=== PATIENT | female | born 1970 | race American Indian/Alaskan Native ===

== ENCOUNTER 2016-09-17 | Emergency (ER) | END 2016-09-17 14:57 | disposition home or self-care (01) ==

== ENCOUNTER 2016-10-01 11:15 | Emergency (ER) | payer MEDICAID ==
[2016-10-01] MEDS ORDERED: IBUPROFEN 600 MG TABLET PO STA (13:55)
[2016-10-01] MEDS ORDERED: SULFAMETH/TRIMETH DS 800/160 MG TABLET PO STA (13:55)
[2016-10-01] MEDS ORDERED: SULFAMETH/TRIMETH DS 800/160 MG TABLET PO ONE ×2 (14:05→14:06)
[2016-10-01] MEDS ORDERED: IBUPROFEN 600 MG TABLET PO ONE (14:05)
== END 2016-10-01 14:14 | disposition home or self-care (01) ==
DX: L02.31 Cutaneous abscess of buttock (principal); F17.200 Nicotine dependence, unspecified, uncomplicated
CPT/HCPCS: 87070; 87077; 87181; 87205; 99282; 99283; A9270

== ENCOUNTER 2016-11-24 20:51 | Emergency (ER) | payer MEDICAID ==
[2016-11-24] MEDS ORDERED: HYDROcod/ACET 5/325 Prepack 6 PO STA (21:16)
[2016-11-24] MEDS ORDERED: CYCLOBENZAPRINE 10 MG Prepack 2 PO STA (21:16)
[2016-11-24] MEDS ORDERED: HYDROcod/ACET 5/325 Prepack 6 PO ONE (21:19)
[2016-11-24] MEDS ORDERED: CYCLOBENZAPRINE 10 MG Prepack 2 PO ONE (21:19)
== END 2016-11-24 21:29 | disposition home or self-care (01) ==
DX: M54.41 Lumbago with sciatica, right side (principal); F17.200 Nicotine dependence, unspecified, uncomplicated

== ENCOUNTER 2017-01-21 08:03 | Day surgery (SDC) | payer MEDICAID ==
[2017-01-21] MEDS ORDERED: ceFAZolin 1 GM VIAL ONE (08:05)
[2017-01-21] MEDS ORDERED: LACTATED RINGERS 1,000 ML IV ONE (08:27)
[2017-01-21 08:41] LABS: HCG UR QUAL NEGATIVE
[2017-01-21] MEDS ORDERED: BUPIVACAINE 0.25% PF 30 ML VIAL SUBQ ONE ×2 (10:37)
[2017-01-21] MEDS ORDERED: PROPOFOL 200 MG/20 ML VIAL IVP ONE (11:00)
[2017-01-21] MEDS ORDERED: ONDANSETRON 4 MG/2 ML VIAL IVP ONE (11:00)
[2017-01-21] MEDS ORDERED: MIDAZOLAM 2 MG/2 ML VIAL IVP ONE (11:00)
[2017-01-21] MEDS ORDERED: fentaNYL 100 MCG/2 ML VIAL IVP ONE (11:00)
[2017-01-21] MEDS ORDERED: LIDOCAINE-MPF 2% 5 ML VIAL IM ONE (11:00)
[2017-01-21] MEDS ORDERED: GLYCOPYRROLATE 1 MG/5 ML VIAL IVP ONE (11:00)
[2017-01-21] MEDS ORDERED: KETAMINE 500 MG/10 ML VIAL IVP ONE (11:00)
[2017-01-21] MEDS ORDERED: DEXAMETHASONE 4 MG/ML VIAL IVP ONE (11:00)
[2017-01-21 12:07] VITALS: BP 101/75
--- NOTE | 2017-02-13 12:01 | OPERATIVE REPORT ---
DATE OF SURGERY: 01/21/2017 00:00:00 PREOPERATIVE DIAGNOSIS: Right middle finger trigger. POSTOPERATIVE DIAGNOSIS: Right middle finger trigger. PROCEDURE: Release of a right middle finger trigger (A1 ja). SURGEON: Jonathan Bush MD. ASSISTANTS: None. SPONGE AND NEEDLE COUNTS: Correct. MATERIAL TO LAB: None. ANESTHESIA: Monitored anesthesia care, plus local anesthetic. FINDINGS: Same. COMPLICATIONS: None. TOURNIQUET: Esmarch to the right arm x11 minutes without complications. BLOOD LOSS: None. SPECIMEN REMOVED AND CULTURES: None. CONDITION AT END OF PROCEDURE: Good. DISPOSITION: PACU, then home. INDICATIONS: This is a 46-year-old female with history of triggering in her right middle finger that had been refractive to conservative management including exercises. She had declined injection becaus e of the anticipated pain. She elected instead for surgical release. PROCEDURE IN DETAIL: After consent and identification, the patient was brought to the operating room on the operating litter in a supine position. After induction of MAC anesthesia, the right upper extr emity was prepped and draped free in the usual sterile fashion for hand surgery. After an appropriate timeout was conducted, we exsanguinated the hand and forearm up to the elbow wit h an Esmarch bandage, which was unwrapped at the wrist and left tied around the proximal forearm and elbow. With the forearm in a supinated position, we extended the digits. We mapped out a short obliqu e 1.5 cm incision directly over the right middle finger metacarpal head. The oblique incision was car ried from radial proximal to ulnar distal down through the skin and subcutaneous fat. Ragnell retract ors were used to retract the fat to allow exposure of the A1 ja. The A1 ja was divided with s weeping motions with a #15 blade scalpel, taking care not to damage the underlying tendon. Ranging the finger through flexion and extension several times revealed a small nodule, which was no longer triggering. We irrigated the wound and closed with a running interlocked 4-0 nylon suture. We injected the wound with 3 mL of 0.5% Marcaine without epinephrine. Xeroform gauze was applied, followed by 4 x 4's and a bulky hand dressing. On completion of the proce dure, the Esmarch was removed without complication. Capillary refill was noted to be less than 2 seco nds. The patient was then extubated and transferred to the recovery room in good condition having james erated the procedure well. JOB #: [id number] EXT JOB #:[id number]
== END 2017-01-21 08:04 | disposition home or self-care (01) ==
LOC: SDS 08:03
PROVIDERS: ATTEND Orthopaedic Surgery
PROC: 0LN70ZZ Release Right Hand Tendon, Open Approach (ICD-10-PCS; principal; 2017-01-21 09:00)
DX: M65.331 Trigger finger, right middle finger (principal); F17.210 Nicotine dependence, cigarettes, uncomplicated; Z90.49 Acquired absence of other specified parts of digestive tract
CPT/HCPCS: 26055; 81025; J7120; 88304

== ENCOUNTER 2017-05-10 19:36 | Emergency (ER) | payer MEDICAID ==
[2017-05-10 19:49] VITALS: BP 113/83
--- NOTE | 2017-05-10 21:21 | XRAY Preliminary Report ---
Exam: XR Elbow 3 View RT IMPRESSION: 1. No acute bony abnormality. 2. Dorsal olecranon edema. Correlate Clinically to differentiate between cellulitis, hematoma, bursit is or mass lesion. [facility] SITE ID: [id number]
--- NOTE | 2017-05-10 21:30 | XRAY Report ---
EXAM: RIGHT ELBOW RADIOGRAPHY EXAM DATE: 05/10/2017 08:56 PM. CLINICAL HISTORY: Pain since a fall onto the right elbow 1.5 weeks ago. COMPARISON: None. TECHNIQUE: 3 views. FINDINGS: Bones: Normal. No fractures or bone lesions. Joints: Normal. No effusion. No subluxation. Soft Tissues: Moderate focal edema dorsal to the olecranon. IMPRESSION: 1. No acute bony abnormality. 2. Dorsal olecranon edema. Correlate clinically to differentiate between cellulitis, hematoma, bursit is or mass lesion. [facility] Referring Provider Line: [phone] SITE ID: [id number]
--- NOTE | 2017-05-10 21:42 | ED Physician Documentation ---
PD HPI UPPER EXT INJURY - Stated complaint Stated Complaint: GLF - RT ARM PX - Chief complaint Chief Complaint: Trauma Ext - History obtained from History obtained from: Patient - History of Present Illness Location: Other (About a week ago she fell directly on her Right elbow and has swelling there that is persistent bothering her.) Review of Systems Constitutional: denies: Fever, Chills GI: denies: Abdominal Pain, Nausea, Vomiting PD PAST MEDICAL HISTORY - Past Medical History Past Medical History: Yes Cardiovascular: None Respiratory: None Neuro: None Endocrine/Autoimmune: None GI: None : None HEENT: None Psych: None Musculoskeletal: Chronic back pain Derm: None - Past Surgical History Past Surgical History: Yes General: Cholecystectomy - Present Medications Home Medications: Ambulatory Orders Medication Instructions Recorded Confirmed [place]-3 Fatty Acids [Fish Oil] 300 mg PO DAILY 01/21/17 05/10/17 - Allergies Allergies/Adverse Reactions: Allergies Allergy/AdvReac Type Severity Reaction Status Date / Time No Known Drug Allergies Allergy Verified 05/10/17 19:50 - Social History Does the pt smoke?: Yes Smoking Status: Current every day smoker Does the pt drink ETOH?: No Does the pt have substance abuse?: No - Immunizations Immunizations are current?: Yes - POLST Patient has POLST: No PD ED PE NORMAL - Vitals Vital signs reviewed: Yes - General General: Alert and oriented X 3, No acute distress - Extremities Extremities: Other (She has a boggy olecranon bursa without warmth or redness or limited range of motion.) - Neuro Neuro: Alert and oriented X 3, Normal speech - Psych Psych: Normal mood, Normal affect Results - Vitals Vitals: Vital Signs - 24 hr 05/10/17 19:47 Temperature 36.0 C L Heart Rate 85 Respiratory 16 Rate Blood Pressure 113/83 H O2 Saturation 100 Oxygen O2 Source Room air PD MEDICAL DECISION MAKING - ED course ED course: 47-year-old woman with traumatic injury to left elbow with negative x-rays, it seems that she has some hemorrhage into her olecranon bursa, given that there is no evidence of infection at this juncture, conservative care and wrapping was advised. Departure - Departure Disposition: 01 Home, Self Care Clinical Impression: Effusion of right olecranon bursa Condition: Good Record reviewed to determine appropriate education?: Yes Follow-Up: [facility] [Provider Group] Comments: Return if worse, otherwise if this does not resolve with wrapping and time you can follow-up with the orthopedics office.
== END 2017-05-10 21:59 | disposition home or self-care (01) ==
LOC: ED 19:36
DX: M25.421 Effusion, right elbow (principal); S59.901A Unspecified injury of right elbow, initial encounter; W19.XXXA Unspecified fall, initial encounter; F17.200 Nicotine dependence, unspecified, uncomplicated
CPT/HCPCS: 99282; 99283

== ENCOUNTER 2017-09-12 17:00 | Emergency (ER) | payer MEDICAID ==
[2017-09-12 17:10] VITALS: BP 130/93
--- NOTE | 2017-09-12 17:33 | ED Physician Documentation ---
History of Present Illness - Stated complaint Stated Complaint: FEMALE - Chief complaint Chief Complaint: General - History obtained from History obtained from: Patient - History of Present Illness Timing: Other (A few days of vaginal itching and irritation without significant discharge. 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 - Present Medications Home Medications: Ambulatory Orders Medication Instructions Recorded Confirmed Metronidazole [Flagyl] 500 mg PO BID #14 tablet 09/12/17 - Allergies Allergies/Adverse Reactions: Allergies Allergy/AdvReac Type Severity Reaction Status Date / Time No Known Drug Allergies Allergy Verified 09/12/17 17:10 - Social History Does the pt smoke?: Yes Smoking Status: Current every day smoker Does the pt drink ETOH?: No Does the pt have substance abuse?: No - Immunizations Immunizations are current?: Yes - POLST Patient has POLST: No PD ED PE NORMAL - Vitals Vital signs reviewed: Yes - General General: Alert and oriented X 3, No acute distress - Abdomen Abdomen: Soft, Non tender - Female Female : 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 No bimanual or cervical motion tenderness. Swabs done but no overt discharge.) - Neuro Neuro: Alert and oriented X 3, Normal speech Results - Vitals Vitals: Vital Signs - 24 hr 09/12/17 17:07 Temperature 36.5 C Heart Rate 85 Respiratory 18 Rate Blood Pressure 130/93 H O2 Saturation 98 Oxygen O2 Source Room air - Labs Labs: Microbiology 09/12/17 17:31 Wet Prep - Final Vaginal 09/12/17 17:31 FIONA Preparation - Final Fluid - Vaginal Laboratory Tests 09/12/17 09/12/17 17:25 17:25 Urine Color YELLOW Urine Clarity CLEAR Urine pH 6.5 Ur Specific [place] <=1.005 <=1.005 Urine Protein NEGATIVE Urine Glucose (UA) NEGATIVE Urine Ketones NEGATIVE Urine Occult Blood NEGATIVE Urine Nitrite NEGATIVE Urine Bilirubin NEGATIVE Urine Urobilinogen 0.2 (NORMAL) Ur Leukocyte Esterase NEGATIVE Ur Microscopic Review NOT INDICATED Urine Culture Comments NOT INDICATED Urine HCG, Qual NEGATIVE Departure - Departure Disposition: 01 Home, Self Care Clinical Impression: Vaginal rosa maria, Bacterial vaginitis Condition: Good Record reviewed to determine appropriate education?: Yes Instructions: Vaginal Infec Bacterial Vaginosis Prescriptions: Metronidazole [Flagyl] 500 mg PO BID #14 tablet Comments: Recheck with your family doctor in 1 week. Return if worse. Your blood pressure was elevated today on check into the emergency department. This does not mean that you have hypertension, it is a common phenomenon to come to the emergency department and have elevated blood pressure. I recommend that you see your primary care physician within the week to have it rechecked when you are feeling better.
[2017-09-12 17:51] LABS: BILIRUBIN,URINE NEGATIVE (NEGATIVE); GLUCOSE, URINE (UA) NEGATIVE (NEGATIVE); KETONES,URINE (UA) NEGATIVE (NEGATIVE); LEUKOCYTE ESTERASE, URINE NEGATIVE (NEGATIVE); NITRITE,URINE NEGATIVE (NEGATIVE); OCCULT BLOOD,URINE NEGATIVE (NEGATIVE); PH,URINE 6.5 PH (5.0-7.5); PROTEIN,URINE NEGATIVE (NEGATIVE); UROBILINOGEN,URINE 0.2 (NORMAL) E.U./dL (NORMAL)
[2017-09-12 17:54] LABS: CLARITY,URINE CLEAR (CLEAR)
[2017-09-12 17:55] LABS: HCG UR QUAL NEGATIVE
[2017-09-12] MEDS ORDERED: FLUCONAZOLE 100 MG TABLET PO STA (18:06)
[2017-09-12] MEDS ORDERED: metroNIDAZOLE 250 MG TABLET PO STA (18:06)
== END 2017-09-12 18:26 | disposition home or self-care (01) ==
LOC: ED 17:00
DX: B37.3 Candidiasis of vulva and vagina (principal); N76.0 Acute vaginitis; R03.0 Elevated blood-pressure reading, without diagnosis of hypertension; F17.200 Nicotine dependence, unspecified, uncomplicated
CPT/HCPCS: 81003; 81025; 87210; 87220; 87491; 87591; 99283; A9270; 81001; 87086

== ENCOUNTER 2018-02-12 22:12 | Emergency (ER) | payer MEDICAID ==
[2018-02-12 22:19] VITALS: BP 134/83
[2018-02-12] MEDS ORDERED: KETOROLAC 60 MG/2 ML VIAL IM STA (22:45)
[2018-02-12] MEDS ORDERED: CYCLOBENZAPRINE 10 MG TABLET PO STA (22:45)
[2018-02-12] MEDS ORDERED: DEXAMETHASONE 10 MG/ML VIAL PO STA (22:45)
--- NOTE | 2018-02-12 22:51 | ED Physician Documentation ---
PD HPI BACK PAIN - Stated complaint Stated Complaint: LOWER BACK PX - Chief complaint Chief Complaint: Back Pain - History obtained from History obtained from: Patient - History of Present Illness Timing - onset: Yesterday Timing - duration: Days (2) Timing - details: Gradual onset Pain level max: 7 Pain level now: 7 Location: Lower, Right, Left Quality: Pain, Spasm, Similar to prior episodes Associated symptoms: No: Fever, Weakness, Numbness, Incontinent of urine, Unable to urinate, Hematuria, Incontinent of stool Improves with: Rest Worsened by: Movement, Twisting, Palpation Contributing factors: No: Lifting, Twisting, Trauma, Anticoagulated, Cancer, IVDA, Out of meds Similar symptoms before: Diagnosis (chronic back pain) Recently seen: Not recently seen Review of Systems Constitutional: denies: Fever, Chills GI: denies: Vomiting, Diarrhea Neurologic: denies: Focal weakness, Numbness PD PAST MEDICAL HISTORY - Past Medical History Cardiovascular: None Respiratory: None Endocrine/Autoimmune: None GI: None : None HEENT: None Psych: None Musculoskeletal: Chronic back pain Derm: None - Past Surgical History Past Surgical History: Yes 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 - Present Medications Home Medications: Ambulatory Orders Medication Instructions Recorded Confirmed Metronidazole [Flagyl] 500 mg PO BID #14 tablet 09/12/17 Cyclobenzaprine [Flexeril] 10 mg PO TID PRN #20 tablet 02/12/18 Meloxicam [Mobic] 15 mg PO DAILY PRN #20 tablet 02/12/18 - Allergies Allergies/Adverse Reactions: Allergies Allergy/AdvReac Type Severity Reaction Status Date / Time No Known Drug Allergies Allergy Verified 09/12/17 17:10 - Social History Does the pt smoke?: Yes Smoking Status: Current every day smoker Does the pt drink ETOH?: No Does the pt have substance abuse?: No - Immunizations Immunizations are current?: Yes - POLST Patient has POLST: No PD ED PE NORMAL - Vitals Vital signs reviewed: Yes - General General: Alert and oriented X 3, No acute distress - HEENT HEENT: Moist mucous membranes - Neck Neck: Supple, no meningeal sign - Cardiac Cardiac: RRR - Respiratory Respiratory: No respiratory distress, Clear bilaterally - Abdomen Abdomen: Soft, Non tender, Non distended - Back Back: No spinal TTP, Other (No midline tenderness to palpation or percussion. Paraspinal spasm low lumbar bilaterally.) - Derm Derm: Warm and dry, No rash - Extremities Extremities: Normal ROM s pain, Other (normal bilateral lower extremity patellar and ankle jerk reflexes. Normal great toe extension bilaterally) - Neuro Neuro: Alert and oriented X 3, No motor deficit, No sensory deficit - Psych Psych: Normal mood, Normal affect Results - Vitals Vitals: Vital Signs - 24 hr 02/12/18 22:17 Temperature 36.0 C L Heart Rate 72 Respiratory 16 Rate Blood Pressure 134/83 H O2 Saturation 100 Oxygen O2 Source Room air PD MEDICAL DECISION MAKING - ED course Complexity details: re-evaluated patient, considered differential (no cauda equina, no spinal epidural abscess, no fracture, no aortic dissection or evidence of aneursym rupture), d/w patient ED course: Patient is a 48-year-old female with acute on chronic back pain. Feels better after Toradol, Flexeril and dexamethasone. Ambulating well. No neurological deficits. No evidence of fracture, cauda equina, epidural abscess. Will continue supportive care and follow-up with her doctor. Patient counseled regarding signs and symptoms for which I believe and urgent re-evaluation would be necessary. Patient with good understanding of and agreement to plan and is comfortable going home at this time This document was made in part using voice recognition software. While efforts are made to proofread this document, sound alike and grammatical errors may occur. Departure - Departure Disposition: 01 Home, Self Care Clinical Impression: Back pain Qualifiers: Back pain location: low back pain Chronicity: acute Back pain laterality: bilateral Sciatica presence: without sciatica Qualified Code(s): M54.5 - Low back pain Condition: Good Instructions: ED Low Back Pain Injury Follow-Up: Salazar Redd MD [Primary Care Provider] - Within 1 week Prescriptions: Cyclobenzaprine [Flexeril] 10 mg PO TID PRN #20 tablet PRN Reason: Spasms Meloxicam [Mobic] 15 mg PO DAILY PRN #20 tablet PRN Reason: pain Comments: Do not drive or operate heavy machinery while on the flexeril. This should improve over the next 2-3 days. Return if you worsen. Discharge Date/Time: 02/12/18 23:20
[2018-02-12] MEDS ORDERED: CHERRY SYRUP 10 ML UDC PO ONE (22:57)
== END 2018-02-12 23:20 | disposition home or self-care (01) ==
LOC: ED 22:12
DX: M54.5 Low back pain (principal); G89.29 Other chronic pain; F17.200 Nicotine dependence, unspecified, uncomplicated
CPT/HCPCS: 96372; 99283; A9270

== ENCOUNTER 2018-04-30 15:39 | Outpatient (CLI) | payer MEDICAID | END 2018-04-30 15:40 | disposition critical access hospital (66) | LOC: EMS 15:39 | PROVIDERS: ATTEND Surgery | DX: R06.02 Shortness of breath (principal); R42 Dizziness and giddiness; R11.2 Nausea with vomiting, unspecified | CPT/HCPCS: A0425; A0427; A0999 ==

== ENCOUNTER 2018-04-30 16:03 | Emergency (ER) | payer MEDICAID ==
--- NOTE | 2018-04-30 16:46 | ED Physician Documentation ---
PD HPI DYSPNEA - Stated complaint Stated Complaint: SOA - Chief complaint Chief Complaint: Neuro - History obtained from History obtained from: Patient - History of Present Illness Timing - onset: How many hours ago (2) Timing - details: Now resolved Similar symptoms before: Has not had sx before - Additional information Additional information: The patient is a 48-year-old female who arrives via ambulance after she developed sudden onset of nausea, vomiting, and shortness of breath about 2 hours prior to arrival while cleaning a room. She denies fever, cough, or shortness of breath. She denies history of similar symptoms in the past. Her symptoms have resolved spontaneously prior to arrival in the emergency department. She smokes cigarettes, and medics report that she was wearing a nicotine patch and smoking a cigarette when they first evaluated her Review of Systems Constitutional: denies: Fever Ears: denies: Tinnitus/ringing Nose: denies: Congestion Throat: denies: Sore throat Cardiac: denies: Chest pain / pressure Respiratory: reports: Dyspnea (Previously, not currently.). denies: Cough GI: reports: Nausea, Vomiting. 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 - Present Medications Home Medications: Ambulatory Orders Medication Instructions Recorded Confirmed Metronidazole [Flagyl] 500 mg PO BID #14 tablet 09/12/17 Cyclobenzaprine [Flexeril] 10 mg PO TID PRN #20 tablet 02/12/18 Meloxicam [Mobic] 15 mg PO DAILY PRN #20 tablet 02/12/18 - Allergies Allergies/Adverse Reactions: Allergies Allergy/AdvReac Type Severity Reaction Status Date / Time No Known Drug Allergies Allergy Verified 04/30/18 16:31 - Social History Does the pt smoke?: Yes Smoking Status: Current every day smoker Does the pt drink ETOH?: No Does the pt have substance abuse?: No - Immunizations Immunizations are current?: Yes - POLST Patient has POLST: No PD ED PE NORMAL - Vitals Vital signs reviewed: Yes (normal) - General General: Alert and oriented X 3, Well developed/nourished - HEENT HEENT: Atraumatic, Pharynx benign - Neck Neck: No adenopathy, No JVD - Cardiac Cardiac: RRR - Respiratory Respiratory: No respiratory distress, Clear bilaterally - Abdomen Abdomen: Soft, Non tender - Back Back: No CVA TTP - Derm Derm: No rash - Extremities Extremities: No edema, No calf tenderness / cord - Neuro Neuro: Alert and oriented X 3, No motor deficit, No sensory deficit Results - Vitals Vitals: Oxygen O2 Source Room air - EKG (time done) 16:42 Rate: Rate (enter#) (96) Rhythm: NSR [place]: Normal Intervals: Prolonged QT (borderline) QRS: Normal Ischemia: Normal ST segments Computer interpretation: Agree with computer - Labs Labs: Laboratory Tests 04/30/18 04/30/18 04/30/18 16:43 16:43 16:43 WBC 2.9 L RBC 3.86 L Hgb 13.1 Hct 37.3 MCV 96.9 MCH 33.9 H MCHC 34.9 RDW 13.5 Plt Count 109 L MPV 9.9 Neut # (Auto) Not Reportable Lymph # (Auto) Not Reportable Josephine # (Auto) Not Reportable Eos # (Auto) Not Reportable Baso # (Auto) Not Reportable Absolute Nucleated RBC Not Reportable Total Counted 100 Band Neuts % (Manual) 1 Abnorm Lymph % (Manual) 0 Nucleated RBC % Not Reportable Neutrophils # (Manual) 1.9 Lymphocytes # (Manual) 0.7 L Monocytes # (Manual) 0.3 Eosinophils # (Manual) 0.0 Basophils # (Manual) 0.0 Manual Slide Review Indicated Platelet Estimate DECREASED (<130,000) Platelet Morphology NORMAL APPEARANCE RBC Morph Micro Appear NORMAL APPEARANCE Sodium 137 Potassium 3.4 L Chloride 102 Carbon Dioxide 27 Anion Gap 8.0 BUN 12 Creatinine 0.6 Estimated GFR (MDRD) 107 Glucose 127 H Calcium 9.0 Total Bilirubin 2.5 H AST 81 H ALT 71 H Alkaline Phosphatase 49 Troponin I < 0.04 Total Protein 7.7 Albumin 4.4 Globulin 3.3 Albumin/Globulin Ratio 1.3 Lipase 22 - Rads (name of study) CXR Radiology: Prelim report reviewed, EMP read contemporaneously, See rad report ( Normal 2 view chest radiography.) PD MEDICAL DECISION MAKING - ED course Complexity details: reviewed results, re-evaluated patient, considered differential, d/w patient, d/w family ED course: The patient's presentation is significant for transient nausea, vomiting and associated shortness of breath, that resolved spontaneously prior to arrival in the emergency department. Her symptoms are most likely due to gastroesophageal reflux. I doubt cardiac or pulmonary etiology. Electrocardiogram, cardiac enzymes, and chest x-ray are all normal. Evaluation does reveal a elevated bilirubin of 2.5. There is no tenderness to palpation in the right upper quadrant. Etiology of the elevated is uncertain at this time, but does not warrant emergent workup. I discussed with the patient and her family the likely diagnosis, symptomatic treatment and outpatient follow-up, as well as potentially worrisome signs or symptoms that should prompt reevaluation in the emergency department. - Sepsis Event Vital Signs: Oxygen O2 Source Room air Departure - Departure Disposition: Home, Self Care Clinical Impression: Hyperbilirubinemia GERD (gastroesophageal reflux disease) Qualifiers: Esophagitis presence: esophagitis presence not specified Qualified Code(s): K21.9 - Gastro-esophageal reflux disease without esophagitis Condition: Stable Instructions: ED GERD Follow-Up: Salazar Redd MD [Primary Care Provider] - Comments: Minimize coffee, leslie, alcohol. If you develop recurrent symptoms, tried drinking liquid antacid, such as Maalox or Mylanta. Follow up with your primary physician within 2 weeks. Call to schedule appointment. Return to the emergency department if you develop increasing difficulty breathing, persistent vomiting, or otherwise worsening symptoms. Discharge Date/Time: 04/30/18 18:05
[2018-04-30 16:53] LABS: BASOPHILS % (AUTO) 0.3 %; EOSINOPHILS % (AUTO) 0.3 %; HGB - HEMOGLOBIN 13.1 g/dL (12.0-16.0); LYMPHOCYTES % (AUTO) 29.8 %; MEAN CORPUSCULAR HEMOGLOBIN 33.9 pg (27.0-31.0); MEAN CORPUSCULAR HGB CONC 34.9 g/dL (32.0-36.0); MEAN CORPUSCULAR VOLUME 96.9 fL (81.0-99.0); MEAN PLATELET VOLUME 9.9 fL (7.9-10.8); MONOCYTES % (AUTO) 7.6 %; PLT - PLATELET COUNT 109 10^3/uL (130-450); RED BLOOD COUNT 3.86 10^6/uL (4.20-5.40); RED CELL DISTRIBUTION WIDTH 13.5 % (12.0-15.0); WHITE BLOOD COUNT 2.9 x10^3/uL (4.8-10.8)
[2018-04-30 17:01] LABS: ALBUMIN 4.4 g/dL (3.2-5.5); ALBUMIN/GLOBULIN RATIO 1.3 (1.0-2.2); BILIRUBIN,TOTAL 2.5 mg/dL (0.2-1.0); CREATININE 0.6 mg/dL (0.4-1.0); TOTAL PROTEIN 7.7 g/dL (6.7-8.2)
[2018-04-30 17:03] LABS: ABNORMAL LYMPHS % (MANUAL) 0 %
--- NOTE | 2018-04-30 17:28 | XRAY Report ---
Procedure Date: 04/30/2018 Accession Number: [id number] / [id number] Procedure: XR - Chest 2 View X-Ray CPT Code: 79643 FULL RESULT: EXAM: CHEST RADIOGRAPHY EXAM DATE: 04/30/2018 05:15 PM. CLINICAL HISTORY: Dyspnea. COMPARISON: Chest 2 view PA/lateral 12/10/2015. TECHNIQUE: 2 views. FINDINGS: Lungs/Pleura: No focal opacities evident. No pleural effusion. No pneumothorax. Normal volumes. Mediastinum: Heart and mediastinal contours are unremarkable. Other: Remote left eighth rib fracture. IMPRESSION: Normal 2-view chest radiography. [facility]
[2018-04-30 17:33] LABS: BAND NEUTROPHILS % (MANUAL) 1 %; LYMPHOCYTES # (MANUAL) 0.7 10^3/uL (1.5-3.5); LYMPHOCYTES % (MANUAL) 23 %; MONOCYTES # (MANUAL) 0.3 10^3/uL (0.0-1.0); NEUTROPHILS # (MANUAL) 1.9 10^3/uL (1.5-6.6); NEUTROPHILS % (MANUAL) 64 %
[2018-04-30 17:35] LABS: PLATELET MORPHOLOGY NORMAL APPEARANCE (NORMAL); RBC MORPHOLOGY (MULTIPLE) NORMAL APPEARANCE (NORMAL)
[2018-04-30 17:36] LABS: PLATELET ESTIMATE, MANUAL DECREASED (<130,000) (NORMAL)
[2018-04-30 18:05] VITALS: BP 110/68
== END 2018-04-30 18:05 | disposition home or self-care (01) ==
LOC: EDUNIT# → ED 16:03
DX: E80.6 Other disorders of bilirubin metabolism (principal); K21.9 Gastro-esophageal reflux disease without esophagitis; F17.200 Nicotine dependence, unspecified, uncomplicated
CPT/HCPCS: 36415; 71046; 80053; 83690; 84484; 85025; 93005; 99283

== ENCOUNTER 2018-07-24 18:04 | Emergency (ER) | payer MEDICAID ==
--- NOTE | 2018-07-24 18:33 | ED Physician Documentation ---
History of Present Illness - Stated complaint Stated Complaint: GLF/RT WRIST INJ - Chief complaint Chief Complaint: Ext Problem - History obtained from History obtained from: Patient, Family - History of Present Illness Timing: How many days ago (2) Pain level max: 6 Pain level now: 4 - Additonal information Additional information: Patient is a 48-year-old female, right-handed who tripped and fell 2 days ago, landing on the right wrist. Has had continued pain since that time. States worse with movement and better with rest. Has not taken anything for the pain. No numbness or tingling. 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: Tubal ligation - Present Medications Home Medications: Ambulatory Orders Medication Instructions Recorded Confirmed Metronidazole [Flagyl] 500 mg PO BID #14 tablet 09/12/17 Cyclobenzaprine [Flexeril] 10 mg PO TID PRN #20 tablet 02/12/18 Meloxicam [Mobic] 15 mg PO DAILY PRN #20 tablet 02/12/18 - Allergies Allergies/Adverse Reactions: Allergies Allergy/AdvReac Type Severity Reaction Status Date / Time No Known Drug Allergies Allergy Verified 04/30/18 16:31 - Social History Does the pt smoke?: Yes Smoking Status: Current every day smoker Does the pt drink ETOH?: No Does the pt have substance abuse?: No - Immunizations Immunizations are current?: Yes - POLST Patient has POLST: No PD ED PE NORMAL - Vitals Vital signs reviewed: Yes - General General: Alert and oriented X 3, No acute distress - Derm Derm: Warm and dry - Extremities Extremities: Other (R wrist - No snuffbox tenderness. Mild diffuse tenderness around the right wrist. Most of the pain with range of motion. No deformity. Neurovascularly intact.) - Neuro Neuro: Alert and oriented X 3 - Psych Psych: Normal mood, Normal affect Results - Vitals Vitals: Vital Signs - 24 hr 07/24/18 07/24/18 18:12 18:48 Temperature 36.1 C L Heart Rate 82 80 Respiratory 18 18 Rate Blood Pressure 143/90 H 138/88 H O2 Saturation 99 100 Oxygen O2 Source Room air - Rads (name of study) Right wrist x-ray Radiology: Prelim report reviewed, EMP read contemporaneously, See rad report (Mild soft tissue swelling without bony abnormality) PD MEDICAL DECISION MAKING - ED course Complexity details: reviewed results, considered differential, d/w patient, d/w family ED course: 48-year-old female with a right wrist sprain. Placed in a Velcro splint for comfort. Neurovascularly intact. Patient counseled regarding signs and symptoms for which I believe and urgent re-evaluation would be necessary. Patient with good understanding of and agreement to plan and is comfortable going home at this time This document was made in part using voice recognition software. While efforts are made to proofread this document, sound alike and grammatical errors may occur. Departure - Departure Disposition: 01 Home, Self Care Clinical Impression: Right wrist sprain Qualifiers: Encounter type: initial encounter Qualified Code(s): S63.501A - Unspecified sprain of right wrist, initial encounter Condition: Good Instructions: ED Sprain Wrist Follow-Up: Salazar Redd MD [Primary Care Provider] - Within 1 week Comments: Your x-rays are normal today. Return if you worsen. Follow-up with your doctor for further care. Wear the brace as needed for comfort. You may use Motrin or Tylenol as needed for pain. Discharge Date/Time: 07/24/18 18:48
[2018-07-24 18:49] VITALS: BP 138/88
--- NOTE | 2018-07-24 18:59 | XRAY Report ---
Reason: tripped, fell onto R wrist, pain Procedure Date: 07/24/2018 Accession Number: [id number] / [id number] Procedure: XR - Wrist 3 View RT CPT Code: FULL RESULT: EXAM: RIGHT WRIST RADIOGRAPHY EXAM DATE: 07/24/2018 06:28 PM. CLINICAL HISTORY: Tripped, fell onto R wrist, pain. COMPARISON: None. TECHNIQUE: 3 views. FINDINGS: Bones: Mild deformity of fifth metacarpal due to old fracture. Small subchondral cyst in lunate. No acute fracture or other bone lesion. Joints: Unremarkable. Soft Tissues: Mild soft tissue swelling. IMPRESSION: Mild soft tissue swelling. RADIA
== END 2018-07-24 18:48 | disposition home or self-care (01) ==
LOC: ED 18:04
DX: S63.501A Unspecified sprain of right wrist, initial encounter (principal); F17.200 Nicotine dependence, unspecified, uncomplicated; W01.0XXA Fall on same level from slipping, tripping and stumbling without subsequent striking against object, initial encounter
CPT/HCPCS: 99282; 99283

== ENCOUNTER 2019-01-14 11:34 | Emergency (ER) | payer MEDICAID ==
[2019-01-14 11:50] VITALS: BP 122/88
[2019-01-14] MEDS ORDERED: DEXAMETHASONE 10 MG/ML VIAL PO STA (12:52)
[2019-01-14] MEDS ORDERED: CHERRY SYRUP 10 ML UDC PO ONE (12:52)
[2019-01-14] MEDS ORDERED: KETOROLAC 60 MG/2 ML VIAL IM STA (12:52)
--- NOTE | 2019-01-14 12:52 | ED Physician Documentation ---
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 She has had her back in spasm for the past 2 days and she has now come to the emergency department as she has had good relief from this previously. She indicates that the last time she was seen here she was given a shot she seemed to think that helped more than what we have given her previously. I checked her record it looks like she was given a shot of Toradol and dexamethasone. Review of Systems Constitutional: denies: Fever Eyes: denies: Decreased vision Ears: denies: Ear pain Nose: denies: Congestion Throat: denies: Sore throat Cardiac: denies: Chest pain / pressure, Palpitations Respiratory: denies: Dyspnea, Cough GI: denies: Abdominal Pain, Nausea, Vomiting : denies: Dysuria, Frequency Skin: denies: Rash Musculoskeletal: reports: Back pain. 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: Tubal ligation - Present Medications Home Medications: Ambulatory Orders Medication Instructions Recorded Confirmed Cyclobenzaprine [Flexeril] 10 mg PO TID PRN #20 tablet 01/14/19 Meloxicam 15 mg PO DAILY PRN #20 tablet 01/14/19 - Allergies Allergies/Adverse Reactions: Allergies Allergy/AdvReac Type Severity Reaction Status Date / Time No Known Drug Allergies Allergy Verified 01/14/19 11:50 - Social History Does the pt smoke?: Yes Smoking Status: Current every day smoker Does the pt drink ETOH?: No Does the pt have substance abuse?: No - Immunizations Immunizations are current?: Yes - POLST Patient has POLST: No PD ED PE NORMAL - Vitals Vital signs reviewed: Yes (hypertensive mild ) - General General: Alert and oriented X 3, No acute distress, Well developed/nourished - HEENT HEENT: Atraumatic, PERRL, EOMI - Neck Neck: Supple, no meningeal sign, No bony TTP - Respiratory Respiratory: No respiratory distress - Back Back: No CVA TTP, Other (paraspinous muscle spasm to the lower lumbar spine bilaterally ) - Derm Derm: Normal color, Warm and dry, No rash - Extremities Extremities: No deformity, No edema - Neuro Neuro: Alert and oriented X 3, imaging tech 2-12 intact, No motor deficit, No sensory deficit, Normal speech Eye Opening: Spontaneous Motor: Obeys Commands Verbal: Oriented GCS Score: 15 - Psych Psych: Normal mood, Normal affect Results - Vitals Vitals: Vital Signs - 24 hr 01/14/19 11:49 Temperature 35.9 C L Heart Rate 84 Respiratory 14 Rate Blood Pressure 122/88 H O2 Saturation 100 Oxygen O2 Source Room air PD MEDICAL DECISION MAKING - ED course Complexity details: reviewed old records, reviewed results, re-evaluated patient, considered differential, d/w patient, d/w family ED course: 48 y/o female with lumbar muscle spams is administered IM toradal and PO decadron we will place her back onto meloxicam and flexeril Departure - Departure Disposition: 01 Home, Self Care Clinical Impression: Back pain with sciatica Condition: Stable Instructions: ED Spasm Back No Trauma Follow-Up: Salazar Redd MD [Primary Care Provider] - Prescriptions: Cyclobenzaprine [Flexeril] 10 mg PO TID PRN #20 tablet PRN Reason: Spasms Meloxicam 15 mg PO DAILY PRN #20 tablet PRN Reason: Pain
== END 2019-01-14 13:17 | disposition home or self-care (01) ==
LOC: ED 11:34
DX: M54.30 Sciatica, unspecified side (principal); F17.200 Nicotine dependence, unspecified, uncomplicated
CPT/HCPCS: 96372; 99283; A9270

== ENCOUNTER 2019-01-21 15:37 | Emergency (ER) | payer MEDICAID ==
[2019-01-21 15:55] VITALS: BP 122/87
[2019-01-21] MEDS ORDERED: DEXAMETHASONE 10 MG/ML VIAL PO STA (16:01)
[2019-01-21] MEDS ORDERED: CHERRY SYRUP 10 ML UDC PO ONE (16:01)
[2019-01-21] MEDS ORDERED: IPRATROPIUM/ALBUTEROL 3 ML NEB INH STA (16:01)
[2019-01-21] MEDS ORDERED: DOXYCYCLINE 100 MG TABLET PO STA (16:01)
--- NOTE | 2019-01-21 16:06 | ED Physician Documentation ---
History of Present Illness - Stated complaint Stated Complaint: CONGESTION/COUGH - Chief complaint Chief Complaint: General - History obtained from History obtained from: Patient - History of Present Illness Timing: Yesterday Pain level max: 4 Pain level now: 3 - Additonal information Additional information: 48-year-old female presents to the emergency department with a cough, nasal congestion, sore throat and fevers, these worsened yesterday. Recently brought her friend to the emergency department was diagnosed with pneumonia. She does smoke. Does not use inhalers. Nothing makes it better or worse. 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: Tubal ligation - Present Medications Home Medications: Ambulatory Orders Medication Instructions Recorded Confirmed Albuterol Sulf [Ventolin Hfa 1 - 2 puffs INH Q4HR PRN #1 inhaler 01/21/19 Inhaler] Doxycycline Hyclate 100 mg PO BID #20 capsule 01/21/19 - Allergies Allergies/Adverse Reactions: Allergies Allergy/AdvReac Type Severity Reaction Status Date / Time No Known Drug Allergies Allergy Verified 01/21/19 15:55 - Social History Does the pt smoke?: Yes Smoking Status: Current every day smoker Does the pt drink ETOH?: No Does the pt have substance abuse?: No - Immunizations Immunizations are current?: Yes - POLST Patient has POLST: No PD ED PE NORMAL - Vitals Vital signs reviewed: Yes - General General: Alert and oriented X 3, No acute distress - HEENT HEENT: Ears normal, Moist mucous membranes, Pharynx benign - Neck Neck: Supple, no meningeal sign - Cardiac Cardiac: RRR, Strong equal pulses - Respiratory Respiratory: No respiratory distress, Other (Diminished breath sounds and wheezing bilaterally) - Abdomen Abdomen: Soft, Non tender, Non distended - Derm Derm: Warm and dry - Neuro Neuro: Alert and oriented X 3 Results - Vitals Vitals: Vital Signs - 24 hr 01/21/19 15:51 Temperature 36.8 C Heart Rate 99 Respiratory 14 Rate Blood Pressure 122/87 H O2 Saturation 100 Oxygen O2 Source Room air PD MEDICAL DECISION MAKING - ED course Complexity details: re-evaluated patient, considered differential, d/w patient ED course: 48-year-old female with clinical pneumonia. Will place on doxycycline. We will also prescribe inhalers for home. Given dexamethasone here. Patient counseled regarding signs and symptoms for which I believe and urgent re-evaluation would be necessary. Patient with good understanding of and agreement to plan and is comfortable going home at this time This document was made in part using voice recognition software. While efforts are made to proofread this document, sound alike and grammatical errors may occur. Departure - Departure Disposition: 01 Home, Self Care Clinical Impression: Pneumonia Qualifiers: Pneumonia type: due to unspecified organism Laterality: unspecified laterality Lung location: unspecified part of lung Qualified Code(s): J18.9 - Pneumonia, unspecified organism Condition: Good Instructions: ED Pneumonia Adult Follow-Up: Jaden Lambert PA-C [Primary Care Provider] - Within 1 week Prescriptions: Albuterol Sulf [Ventolin Hfa Inhaler] 1 - 2 puffs INH Q4HR PRN #1 inhaler PRN Reason: Shortness Of Air/Wheezing Doxycycline Hyclate 100 mg PO BID #20 capsule Comments: Return if you worsen. Take all antibiotics until gone.
== END 2019-01-21 16:31 | disposition home or self-care (01) ==
LOC: ED 15:37
DX: J18.9 Pneumonia, unspecified organism (principal); F17.200 Nicotine dependence, unspecified, uncomplicated
CPT/HCPCS: 94640; 94664; 99283; A9270

== ENCOUNTER 2019-04-17 22:29 | Emergency (ER) | payer MEDICAID ==
[2019-04-17 22:39] VITALS: BP 141/100
--- NOTE | 2019-04-17 23:39 | ED Physician Documentation ---
PD HPI FEMALE - Stated complaint Stated Complaint: FEM - Chief complaint Chief Complaint: General - History obtained from History obtained from: Patient - History of Present Illness Timing - onset: How many days ago (4) Timing - details: Gradual onset Associated symptoms: Vaginal discharge (scant, not unusual per patient). No: Fever, Vaginal pain, Vaginal bleeding Contributing factors: No: Similar symptoms before: Has not had sx before - Additional information Additional information: I have an irritation down there, per patient. c/o vaginal irritation, discomfort but denied dave pain. she says she has been using the same towels and toilet seat as someone who was recently diagnosed with a vaginal yeast infection and she is worried she might have caught it. 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: Tubal ligation - Present Medications Home Medications: Ambulatory Orders Medication Instructions Recorded Confirmed Albuterol Sulf [Ventolin Hfa 1 - 2 puffs INH Q4HR PRN #1 inhaler 01/21/19 Inhaler] Doxycycline Hyclate 100 mg PO BID #20 capsule 01/21/19 - Allergies Allergies/Adverse Reactions: Allergies Allergy/AdvReac Type Severity Reaction Status Date / Time No Known Drug Allergies Allergy Verified 04/17/19 22:39 - Social History Does the pt smoke?: Yes Smoking Status: Current every day smoker Does the pt drink ETOH?: No Does the pt have substance abuse?: No - Immunizations Immunizations are current?: Yes - POLST Patient has POLST: No PD ED PE NORMAL - Vitals Vital signs reviewed: Yes - General General: Alert and oriented X 3, No acute distress, Well developed/nourished - Abdomen Abdomen: Soft, Non tender Results - Vitals Vitals: Oxygen O2 Source Room air PD MEDICAL DECISION MAKING - ED course Complexity details: considered differential, d/w patient ED course: NAD, c/o vague vaginal irritation; during HPI, seems to be primarily concerned with having contracted a yeast infection from using same toilet seat and towels as someone else who was recently diagnosed with yeast infection. brief abdominal exam is unremarkable, and I explained to patient that I would need to perform a pelvic exam next. she was agreeable to this, but when I then explained that the nurse would first need to set up the proper equipment for this exam and that the possibility of a delay due to heavy ED volume, she changed her mind and asked to be discharged and said she would come back tomorrow. Departure - Departure Disposition: ED Elope Clinical Impression: Vaginal irritation Condition: Good Discharge Date/Time: 04/17/19 23:53
== END 2019-04-17 23:53 | disposition left against medical advice (07) ==
LOC: ED 22:29
DX: N89.8 Other specified noninflammatory disorders of vagina (principal); F17.200 Nicotine dependence, unspecified, uncomplicated
CPT/HCPCS: 99281; 99282

== ENCOUNTER 2019-05-28 14:54 | Emergency (ER) | payer MEDICAID ==
[2019-05-28 15:01] VITALS: BP 114/85
[2019-05-28] MEDS ORDERED: CHERRY SYRUP 10 ML UDC PO ONE (15:06)
[2019-05-28] MEDS ORDERED: DEXAMETHASONE 10 MG/ML VIAL PO STA (15:06)
[2019-05-28] MEDS ORDERED: KETOROLAC 60 MG/2 ML VIAL IM STA (15:06)
--- NOTE | 2019-05-28 15:08 | ED Physician Documentation ---
PD HPI BACK INJURY - Stated complaint Stated Complaint: BACK PX - History obtained from History obtained from: Patient - History of Present Illness Location: Left (49-year-old woman with recurrent episodes of back pain. It started in the same place as usual which is left lower lumbar spine about 2 days ago without specific injury. 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 It radiates down into the thigh but no further. There is no associated weakness, numbness, tingling, saddle anesthesia, incontinence, or fevers. 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 : None HEENT: None Psych: None Musculoskeletal: Chronic back pain Derm: None - Past Surgical History Past Surgical History: Yes General: 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: Tubal ligation - Present Medications Home Medications: Ambulatory Orders Medication Instructions Recorded Confirmed Albuterol Sulf [Ventolin Hfa 1 - 2 puffs INH Q4HR PRN #1 inhaler 01/21/19 Inhaler] Doxycycline Hyclate 100 mg PO BID #20 capsule 01/21/19 Cyclobenzaprine [Flexeril] 10 mg PO TID PRN #20 tablet 05/28/19 Meloxicam [Mobic] 7.5 mg PO BID PRN #20 tablet 05/28/19 - Allergies Allergies/Adverse Reactions: Allergies Allergy/AdvReac Type Severity Reaction Status Date / Time No Known Drug Allergies Allergy Verified 04/17/19 22:39 - Social History Does the pt smoke?: Yes Smoking Status: Current every day smoker Does the pt drink ETOH?: No Does the pt have substance abuse?: No - Immunizations Immunizations are current?: Yes - POLST Patient has POLST: No PD ED PE NORMAL - Vitals Vital signs reviewed: Yes - General General: Alert and oriented X 3, Other (Comfortable at rest, winces slightly with motion. Normal gait.) - Abdomen Abdomen: Soft, Non tender - Back Back: Other (No midline spinal tenderness, she is focally tender over the left SI joint and left paralumbar musculature) - Extremities Extremities: Other (The patient has equal and normal Achilles and patellar reflexes bilaterally. Normal sensation in all areas of the legs. Patient denies saddle anesthesia. Normal strength in flexion-extension at the ankles, knees, and flexion of the hips.) - Neuro Neuro: Alert and oriented X 3, Normal speech Results - Vitals Vitals: Vital Signs - 24 hr 05/28/19 15:00 Temperature 36.2 C L Respiratory 18 Rate Blood Pressure 114/85 H O2 Saturation 100 Oxygen O2 Source Room air PD MEDICAL DECISION MAKING - ED course ED course: This patient has seemingly uncomplicated musculoskeletal back pain. The patient has no "red flags." Specifically denies IV drug use, fevers, incontinence, saddle anesthesia. Spinal epidural abscess was considered, given that the patient has no fever, is not diabetic, has no spinal tenderness, does not use IV drugs, and has no bilateral neurologic symptoms, the diagnosis of spinal epidural abscess is considered exceedingly unlikely. Departure - Departure Disposition: 01 Home, Self Care Clinical Impression: Back pain Qualifiers: Back pain location: low back pain Chronicity: acute Back pain laterality: left Sciatica presence: with sciatica Sciatica laterality: sciatica of left side Qualified Code(s): M54.42 - Lumbago with sciatica, left side Condition: Good Record reviewed to determine appropriate education?: Yes Instructions: ED Low Back Pain Injury Prescriptions: Cyclobenzaprine [Flexeril] 10 mg PO TID PRN #20 tablet PRN Reason: Spasms Meloxicam [Mobic] 7.5 mg PO BID PRN #20 tablet PRN Reason: Pain Comments: Call your doctor to arrange a follow-up appointment, make the next available appointment. In the interim, return anytime if worse or if new symptoms develop.
== END 2019-05-28 15:28 | disposition home or self-care (01) ==
LOC: ED 14:54
DX: M54.42 Lumbago with sciatica, left side (principal); F17.200 Nicotine dependence, unspecified, uncomplicated
CPT/HCPCS: 96372; 99283; 99284; A9270

== ENCOUNTER 2020-03-21 16:30 | Emergency (ER) | payer MEDICAID ==
--- NOTE | 2020-03-21 17:31 | ED Physician Documentation ---
PD HPI UPPER EXT INJURY - Stated complaint Stated Complaint: RT HAND PX - Chief complaint Chief Complaint: Ext Problem - History obtained from History obtained from: Patient (History of trigger fingers and Dupuytren's contractures status post surgery a year ago. Now with more similar pain in the right thumb with a clicking and catching. 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: Tubal ligation - Present Medications Home Medications: Ambulatory Orders Medication Instructions Recorded Confirmed Albuterol Sulf [Ventolin Hfa 1 - 2 puffs INH Q4HR PRN #1 inhaler 01/21/19 Inhaler] Doxycycline Hyclate 100 mg PO BID #20 capsule 01/21/19 Cyclobenzaprine [Flexeril] 10 mg PO TID PRN #20 tablet 05/28/19 Meloxicam [Mobic] 7.5 mg PO BID PRN #20 tablet 05/28/19 Meloxicam [Mobic] 7.5 mg PO BID PRN #20 tablet 03/21/20 - Allergies Allergies/Adverse Reactions: Allergies Allergy/AdvReac Type Severity Reaction Status Date / Time No Known Drug Allergies Allergy Verified 03/21/20 16:38 - Social History Does the pt smoke?: Yes Smoking Status: Current every day smoker Does the pt drink ETOH?: No Does the pt have substance abuse?: No - Immunizations Immunizations are current?: Yes - POLST Patient has POLST: No PD ED PE NORMAL - Vitals Vital signs reviewed: Yes - General General: Alert and oriented X 3, No acute distress - Extremities Extremities: Other (She has crepitance in the interphalangeal joint of the right thumb and catching consistent with a tendinitis and Dupuytren's contracture.) Results - Vitals Vitals: Vital Signs - 24 hr 03/21/20 03/21/20 16:36 17:55 Temperature 36.8 C 36.6 C Heart Rate 108 H 98 Respiratory 18 16 Rate Blood Pressure 145/88 H 140/80 H O2 Saturation 100 100 Oxygen O2 Source Room air - Rads (name of study) R hand thumb Radiology: EMP read contemporaneously (Ligamentous laxity and osteoarthritis) Departure - Departure Disposition: 01 Home, Self Care Clinical Impression: Dupuytren's contracture of both hands Condition: Good Record reviewed to determine appropriate education?: Yes Instructions: Contracture Dupuytren Tx Prescriptions: Meloxicam [Mobic] 7.5 mg PO BID PRN #20 tablet PRN Reason: Pain Comments: At this point with all your hand problems seems reasonable to follow-up with a hand surgeon. The closest is in [place], Dr. Sebastian Webster. His phone number is [phone]. Return for new or worsening symptoms. You can wear the splints as needed for comfort but it does not have to be on all the time. Discharge Date/Time: 03/21/20 17:55
[2020-03-21 17:56] VITALS: BP 140/80
--- NOTE | 2020-03-21 18:37 | XRAY Report ---
PROCEDURE: Finger(s) RT INDICATIONS: right thumb popping and pain with use TECHNIQUE: AP hand, 3 views of the first finger(s) acquired. COMPARISON: None FINDINGS: Bones: No fractures or dislocations. No suspicious bony lesions. There is mild osteoarthritis with likelihood of mild ligamentous laxity at the base of the first metacarpal. Soft tissues: No suspicious soft tissue calcifications. 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 Reviewed by: Karl Tejeda MD on 03/21/2020 6:36 PM PDT Approved by: Karl Tejeda MD on 03/21/2020 6:36 PM PDT Station ID: [id number]
== END 2020-03-21 17:55 | disposition home or self-care (01) ==
LOC: ED 16:30
DX: M72.0 Palmar fascial fibromatosis [Dupuytren] (principal); M18.11 Unilateral primary osteoarthritis of first carpometacarpal joint, right hand; F17.200 Nicotine dependence, unspecified, uncomplicated
CPT/HCPCS: 73140; 99282; 99283